=== PATIENT | male | born 1985 | race Caucasian/White ===

== ENCOUNTER 2018-11-01 11:57 | Emergency (ER) | payer MEDICAID ==
[~2018-11-01] VITALS: Ht 182.9 cm; Wt 95.1 kg
[2018-11-01 12:01] VITALS: Ht 182.9 cm; Wt 95.1 kg
[2018-11-01] MEDS ORDERED: HYDROCODONE/APAP (5/325) TAB PO ONE (12:30)
[2018-11-01] MEDS ORDERED: NAPR-985 PO (13:56)
[2018-11-01] MEDS ORDERED: HYDR-4011 PO (13:56)
[2018-11-01 14:06] VITALS: BP 142/71; PULSE 84; RESP 18
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
== END 2018-11-01 14:07 | disposition home or self-care (01) ==
LOC: FTE 11:57
DX: S02.401A Maxillary fracture, unspecified side, initial encounter for closed fracture (principal); Y04.0XXA Assault by unarmed brawl or fight, initial encounter
CPT/HCPCS: 70450; 70486; Z7502; Z7610